=== PATIENT | female | born 1960 | race Caucasian/White ===

== ENCOUNTER 2024-09-15 12:19 | Emergency (ER) | payer MEDICAID ==
[~2024-09-15] VITALS: Ht 162.6 cm; Wt 56.6 kg
[2024-09-15 12:27] VITALS: TEMP 98
[2024-09-15] MEDS ORDERED: HYDR-3973 PO (13:07)
[2024-09-15] MEDS: HYDROcodone/acetaminophen 10/325mg tab PO ONE (13:38)
[2024-09-15 16:38] VITALS: BP 138/69; PULSE 87; RESP 18; O2SAT 95
== END 2024-09-15 16:40 | disposition home or self-care (01) ==
LOC: ER 12:20
DX: S52.502A Unspecified fracture of the lower end of left radius, initial encounter for closed fracture (principal); S52.612A Displaced fracture of left ulna styloid process, initial encounter for closed fracture; S62.141A Displaced fracture of body of hamate [unciform] bone, right wrist, initial encounter for closed fracture; S62.161A Displaced fracture of pisiform, right wrist, initial encounter for closed fracture; Z79.899 Other long term (current) drug therapy; W01.0XXA Fall on same level from slipping, tripping and stumbling without subsequent striking against object, initial encounter; Y93.02 Activity, running; Y92.89 Other specified places as the place of occurrence of the external cause; Y99.8 Other external cause status
CPT/HCPCS: 29125; 73110; 73200; 99284; A4565; A6449